=== PATIENT | female | born 1995 | race Caucasian/White ===

== ENCOUNTER → 2019-08-21 | Outpatient (CLI) | payer BC ==
[~2019-08-21] MED LIST: MACROBID 1100 MG/CAP PO
== END ==
LOC: MC.RAD 09:42
DX: N63.10 Unspecified lump in the right breast, unspecified quadrant (principal); N64.4 Mastodynia

== ENCOUNTER → 2020-03-16 | Outpatient (CLI) | payer BC | LOC: ZCOL.LAB 16:20 | DX: Z20.828 Contact with and (suspected) exposure to other viral communicable diseases (principal) ==